=== PATIENT | female | born 1955 | race Caucasian/White ===

== ENCOUNTER 2022-07-26 14:47 | Emergency (ER) | payer SELFPAY ==
[~2022-07-26] VITALS: Ht 160 cm; Wt 74.8 kg
[2022-07-26 14:53] VITALS: BP 136/84
[2022-07-26] MEDS ORDERED: KETOROLAC 30 MG/ML VIAL IM ONE (16:50)
--- NOTE | 2022-07-26 17:10 | NUR ---
Xray at bedside.
[2022-07-26] MEDS ORDERED: NACL 0.9% 1,000 ML IV ONE (18:15)
--- NOTE | 2022-07-26 18:20 | NUR ---
Pt ambulated to restroom with steady gait.
[2022-07-26 18:29] LABS: ALBUMIN 3.4 g/dL (3.4-5.0); ANION GAP 14.5 (8-16); CARBON DIOXIDE 25.4 mmol/L (21-32); CREATININE 1.8 mg/dL (0.6-1.3); POTASSIUM 3.9 mmol/L (3.5-5.1); TOTAL BILIRUBIN 0.3 mg/dL (0.0-1.0)
--- NOTE | 2022-07-26 19:20 | NUR ---
Pt report given to [facility]. Transfer of care at this time.
[2022-07-26] MEDS ORDERED: NIRM1TAB5 PO ×2 (19:21→20:48)
[2022-07-26] MEDS ORDERED: ROB PO ×2 (19:21→20:48)
[2022-07-26] MEDS ORDERED: ACET-10509 PO ×2 (19:21→20:48)
[2022-07-26 19:42] VITALS: BP 104/42
--- NOTE | 2022-07-26 19:43 | NUR ---
Patient discharged with v/s stable. Written and verbal after care instructions given and explained. Patient alert, oriented and verbalized understanding of instructions. Ambulatory with steady gait. All questions addressed prior to discharge. ID band removed. Patient advised to follow up with PMD. Rx sent electronically. Patient educated on indication of medication including possible reaction and side effects. Opportunity to ask questions provided and answered.
== END 2022-07-26 19:43 | disposition home or self-care (01) ==
LOC: MED 14:47
DX: U07.1 COVID-19 (principal); R51.9 Headache, unspecified; R53.1 Weakness; E07.9 Disorder of thyroid, unspecified; Z98.890 Other specified postprocedural states; Z88.0 Allergy status to penicillin; Z79.899 Other long term (current) drug therapy
CPT/HCPCS: 36415; 71045; 80053; 87426; 96360; 96372; 99284; J1885; J7030